=== PATIENT | male | born 1985 | race African-American/Black ===

== ENCOUNTER 2024-01-11 10:53 | Emergency (ER) | payer MEDICAID ==
[~2024-01-11] VITALS: Ht 172.7 cm; Wt 122.0 kg
[2024-01-11 11:15] VITALS: BP 158/103; PULSE 76; RESP 16; TEMP 98.3; O2SAT 99
[2024-01-11] MEDS ORDERED: IBUP-2030 MT (11:51)
== END 2024-01-11 12:58 | disposition home or self-care (01) ==
LOC: ER 10:53
DX: R59.9 Enlarged lymph nodes, unspecified (principal); Z98.890 Other specified postprocedural states
CPT/HCPCS: 99282